=== PATIENT | female | born 1965 | race Caucasian/White ===

== ENCOUNTER 2017-02-28 04:41 | Emergency (ER) | payer OTHER ==
[~2017-02-28] VITALS: Ht 170.2 cm; Wt 75.0 kg
[~2017-02-28 04:41] MED LIST: BACT800T5 PO; HYDR2.5O TOPICAL; PROP40TA3 PO; SUMA100T2 PO
[2017-02-28 04:44] VITALS: BP 139/69; PULSE 73; RESP 16; TEMP 98.1; O2SAT 97
[2017-02-28] MEDS ORDERED: DICL75TA PO (05:11)
[2017-02-28] MEDS ORDERED: HYDR-3533 PO (05:11)
[2017-02-28] MEDS ORDERED: IBUPROFEN 800 MG TAB PO ONE (05:15)
[2017-02-28] MEDS ORDERED: ACETAMINOPHEN/HYDROcodone 325 MG/5 MG TAB PO ONE (05:15)
--- NOTE | 2017-02-28 05:17 | PD ---
HPI Chief Complaint: Injury Time Seen by Provider: 05:13 Travel History International Travel<30 days: No Contact w/Intl Traveler<30days: No Traveled to known affect area: No History of Present Illness HPI 51-year-old white female presents to emergency Department with complaints of left knee pain. She states that she's had knee pain on and off now for several months due to years. She states that she has had pain in her left knee which has been intensifying over last week or 2. She occasionally has some giving out or locking. She states that yesterday at work she did a lot of walking. She had some moderate pain but when she woke this morning she could not bear weight. She states that she does not recall any direct trauma. She states that the pain is moderate to severe. She feels like she has some swelling underneath her knee. She denies any acute bowel or bladder changes. No numbness or tingling. PFSH Past Medical History Diminished Hearing: No Migraines: Yes Tetanus Vaccination: Unknown Influenza Vaccination: No ?: Not LMP: 01/2017 : 4 Para: 3 : 1 Past Surgical History Section: Yes (X1) Tonsillectomy: Yes Social History Alcohol Use: Yes (OCCASIONALLY) Tobacco Use: No Substance Use: No Allergies-Medications (Allergen,Severity, Reaction): Coded Allergies: No Known Allergies (Unverified , 02/28/17) Reported Meds & Prescriptions Reported Meds & Active Scripts Active Lortab (Hydrocodone-Acetaminophen) 5-325 Mg Tab 1 Tab PO Q8HR PRN Diclofenac Sodium DR (Diclofenac Sodium) 75 Mg Tabdr 75 Mg PO BID Propranolol (Propranolol HCl) 40 Mg Tab 40 Mg PO Q12HR Sumatriptan (Sumatriptan Succinate) 100 Mg Tab 100 Mg PO ONCE PRN If a satisfactory response has not been obtained at 2 hours, a second dose may be administered Review of Systems Except as stated in HPI: all other systems reviewed are Neg Physical Exam Narrative GENERAL: This is a well-nourished, well-developed patient, in no apparent distress. SKIN: No rashes, ecchymoses or lesions. Warm and dry. HEAD: Atraumatic. Normocephalic. EYES: PERRL, EOMI, no discharge or injection. No scleral icterus. EARS: Clear NOSE: Nasal turbinates appear normal. THROAT: Mucosa pink and moist. Airway patent. NECK: Trachea midline. supple, moves head freely. LUNGS: Clear to auscultation. CV: Regular in rhythm. ABDOMEN: Soft nontender. EXT: No clubbing cyanosis or edema. Examination of the left lower extremity reveals mild arthritic changes. There is no obvious joint effusion. The patient has full extension but is limited flexion to 120. The patient has no obvious ligament instability. No anterior posterior draw. No medial lateral collateral ligament instability. No pain in the ankle, foot, hip. She has intact sensation with good pulses. Attempts at weightbearing are unsuccessful due to pain. Data Data Last Documented VS Vital Signs Date Time Temp Pulse Resp B/P Pulse Ox O2 Delivery O2 Flow Rate FiO2 02/28/17 04:44 98.1 73 16 139/69 97 Room Air Orders Ice/Cold Pack (02/28/17 05:10) Crutches (02/28/17 05:10) Ibuprofen (Motrin) (02/28/17 05:15) Acetamin-Hydrocod 325-5 Mg ([place] 5-325 (02/28/17 05:15) MDM Medical Decision Making Medical Screen Exam Complete: Yes Emergency Medical Condition: Yes Medical Record Reviewed: Yes Differential Diagnosis MDM: High Differential diagnoses: Fracture, sprain, strain, dislocation, contusion, neurovascular injury Narrative Course X-rays are not indicated. There is no trauma. Patient's symptoms are consistent with knee pain with a meniscal tear. Patient given Lortab 5 mg by mouth and Motrin 800 mg by mouth. Diagnosis Primary Impression: Left knee pain Additional Impression: Degenerative tear of meniscus of left knee Patient Instructions: General Instructions, Narcotic given in the ED Additional Instructions: Rest. Elevation. Ice packs for the next 3 days. Brown wrap and crutches. No weight-bearing and then progress to weight-bearing as tolerated. Medications as directed Follow-up with an orthopedist or your doctor in one week. Return to the ER if any problems Scripts Hydrocodone-Acetaminophen (Lortab)5-325 Mg Tab1 Tab PO Q8HR PRN (PAIN) #12 TAB Prov:Jake Kenney MD 02/28/[address] 75 Mg Tabdr75 Mg PO BID #20 TAB Prov:Jake Kenney MD 02/28/17 Disposition: 01 DISCHARGE HOME Condition: Stable Keelen,Kehinde T. PA Feb 28, 2017 05:17
[2017-03-04] MEDS ORDERED: MELO7.5T4 PO (11:21)
== END 2017-02-28 05:39 | disposition home or self-care (01) ==
LOC: NEPD 04:41
DX: M25.562 Pain in left knee (principal)
CPT/HCPCS: 99284; E0113